=== PATIENT | male | born 1975 | race Caucasian/White ===

== ENCOUNTER 2021-06-13 01:15 | Emergency (ER) | payer OTHER ==
[~2021-06-13] VITALS: Ht 172.7 cm; Wt 77.1 kg
[2021-06-13 02:03] LABS: BASOPHILS 1.1 % (0.0-2.0); EOSINOPHILS 4.7 % (0.0-3.0); HEMATOCRIT 41.9 % (42.0-52.0); HEMOGLOBIN 14.4 gm/dL (14.0-18.0); MCH 32.3 pg (26.0-34.0); MCHC 34.5 g/dL (28.0-37.0); MCV 93.6 fL (80.0-100.0); PLATELET COUNT 223 thou/uL (150-400); POLYS 56.2 % (36.0-66.0); RBC 4.48 mil/uL (4.50-6.00); RDW 13.5 % (10.5-14.5); WBC 7.2 thou/uL (4.0-11.0)
[2021-06-13 02:09] LABS: CALCIUM 8.5 mg/dL (8.5-10.1); POTASSIUM 3.8 mmol/L (3.5-5.1)
[2021-06-13] MEDS ORDERED: HYDROXYZINE HCL25 M2 PO (02:22)
[2021-06-13 02:45] VITALS: BP 134/91
--- NOTE | 2021-06-13 09:31 | EKG ---
[address] [place] [address] [place] [address] ELECTROCARDIOGRAM REPORT Name: AFRICA PACK CADENELLIS Room #: [facility] [id number] Admission: 06/13/21 Attend Phys: Discharge: 06/13/21 Date of : 73 Report #: [id number] [facility] ED Test Date: 2021-06-13 Test Time: 01:46:31 Pat Name: AFRICA PACK Department: Room: Gender: Rn Hemodialysis: [place] : 1975 Requested By: Alex Mccarty Order Number: [id number] MD: Mal Gonzalez Measurements Intervals [place] Rate: 79 P: 57 AR: 148 QRS: 70 QRSD: 89 T: 38 QT: 363 QTc: 417 Interpretive Statements Sinus rhythm RSR' in V1 or V2, probably normal variant No previous ECG available for comparison Electronically Signed On 06-13-2021 9:30:54 CDT by Mal Gonzalez [email or web address] <ELECTRONICALLY SIGNED> By: Mal Gonzalez MD 06/13/21 0930 [id number] Mal Gonzalez MD /EPI
== END 2021-06-13 02:40 | disposition home or self-care (01) ==
LOC: ER 01:15
PROVIDERS: Emergency Medicine
DX: F99 Mental disorder, not otherwise specified (principal); Z91.09 Other allergy status, other than to drugs and biological substances

== ENCOUNTER 2021-06-13 13:29 | Emergency (ER) | payer OTHER ==
[~2021-06-13] VITALS: Ht 172.7 cm; Wt 70.8 kg
[2021-06-13 13:29] VITALS: BP 119/75
[~2021-06-13 13:29] MED LIST: HYDROXYZINE HCL25 M2 PO
== END 2021-06-13 14:14 | disposition home or self-care (01) ==
LOC: ER 13:29
DX: F41.9 Anxiety disorder, unspecified (principal); Z53.21 Procedure and treatment not carried out due to patient leaving prior to being seen by health care provider